=== PATIENT | male | born 1970 | race Caucasian/White ===

== ENCOUNTER 2024-09-30 00:31 | Day surgery (SDC) | payer OTHER, SELFPAY ==
[2024-09-24 15:45] VITALS: BMI 20.7
--- OUTSIDE RECORDS SUMMARY | 2024-09-30 00:34 | XMS_ITS | Referral Summary ---
Author Organization [facility] Address [address] [place] [id number] Care Team Providers Care Qualitative Field Coordinator Name Role Phone Mary Kate Cabrera Primary Care Provider + Allergies Active Allergy Reactions Criticality Noted Date Comments Penicillins Nausea & Vomiting Low 02/20/2024 Medications cetirizine 10 mg capsule Take by mouth Active Active Problems Problem Noted Date Diagnosed Date Positive colorectal cancer screening using Colog uard test 02/15/2024 Social History Tobacco Use Types Packs/Day Years Used Date Smoking Tobacco: Some Days Cigarettes 0.5 21.4 Started: 2003 Smokeless Tobacco: Never Tobacco Cessation:Ready to Q uit: Not Asked; Counseling Given: Not Answered AUDIT-C Answer Date Recorded Q1: How often do you have a drink containing alcohol? Never 03/21/2024 Q2: How many drinks containi ng alcohol do you have on a typical day when you are drinking? Patient does not drink Q3: How often do you have si x or more drinks on one occasion? 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 Additional history: None. TECHNIQUE: Low dose CT scan of the chest was performed without intravenous contrast using helical scanning technique. The exam extends from the lung apices through the lung bases. Automatic exposure control was used as a dose optimization technique. NOTE: This study was performed for the specific purposes of lung cancer screening and is not an alternative to diagnostic chest CT. RADIATION DOSE: CT dose index volume (CTDIvol) = 2.86 mGy COMPARISON: 04/21/2023 FINDINGS: SMOKING RELATED LUNG DISEASE: There is moderate emphysema, stable. There is pleuroparenchymal scarring within the right apex, stable in appearance compared to the prior examination. This extends as a bandlike area of scarring/atelectasis in the right upper lobe, stable from prior examination. LUNG NODULES: Previously documented nodules are as follows: 2 mm nodule lateral right upper lobe, image 110, stable. Stable 3 mm nodule anterior right middle lobe image 177. Stable 4 mm juxta fissural nodule right lower lobe, image 188. Bilobed 7 x 4 mm nodule right middle lobe, image 213, stable. 4 mm nodule posterolateral left upper lobe, image 44, stable. 4 mm nodule, lingula, image 216, stable. Nodular focus of scarring in the right upper lobe on image number 65 measures 7 mm, stable from prior examination. 4 mm nodule in the lingula on image 180 is stable. CORONARY ARTERY CALCIFICATION: Present. OTHER: There is no pneumonic consolidation. There is some subsegmental scarring and atelectasis. Minimal central bronchial wall thickening is noted. No effusion or pneumothorax. The central airways are patent. There is no mediastinal or hilar lymphadenopathy. Postinflammatory calcifications in the left hilum are stable. The esophagus is unremarkable. The heart is normal in size without a pericardial effusion. The thoracic aorta is normal in caliber. Atherosclerotic changes are present. There is no axillary lymphadenopathy. Scattered nodes are similar to the prior study. The chest wall is unremarkable. Visualized upper abdomen reveals mild nonspecific thickening of the left adrenal gland, stable. Hypodense lesion in the medial right hepatic lobe on image 334 measures 7 mm, too small to characterize. There is no acute osseous abnormality. IMPRESSION: Scattered bilateral pulmonary nodules, stable. No new suspicious nodularity. Moderate emphysema, stable. Coronary artery calcifications. Additional findings as above. Lung-RADS category 2S: Benign appearance or behavior. Finding other than a pulmonary nodule which is potentially clinically significant. Recommendation: Low dose Screening CT of chest in 12 months. THIS IS AN ELECTRONICALLY VERIFIED FINAL REPORT 03/07/2024 6:50 AM - Electronically signed by Corin Givens M.D. TW: TW Report ID: [id number] Reading Location: [place] [id number] Procedure Note Corin Givens MD - 03/07/2024 EXAM DESCRIPTION: CT CHEST WO CONTRAST F/U LUNG SCREEN PROTOCOL REASON FOR STUDY: Screening CT of the chest in a current smoker with a37 pack year smoking history. Additional history: None. TECHNIQUE: Low dose CT scan of the chest was performed without intravenous contrast using helical scanning technique. The exam extends from the lung apices through the lung bases. Automatic exposure control was used as adose optimization technique. NOTE: This study was performed for the specific purposes of lung cancer screening and is not an alternative to diagnostic chest CT. RADIATION DOSE: CT dose index volume (CTDIvol) = 2.86 mGy COMPARISON: 04/21/2023 FINDINGS: SMOKING RELATED LUNG DISEASE: There is moderate emphysema,stable. There is pleuroparenchymal scarring within the right apex, stable in appearance compared to the prior examination. This extends as a bandlikearea of scarring/atelectasis in the right upper lobe, stable from prior examination. LUNG NODULES: Previously documented nodules are as follows: 2 mm nodule lateral right upper lobe, image 110, stable. Stable 3 mm nodule anterior right middle lobe image 177. Stable 4 mm juxta fissural nodule right lower lobe, image 188. Bilobed 7 x 4 mm nodule right middle lobe, image 213, stable. 4 mm nodule posterolateral left upper lobe, image 44, stable. 4 mm nodule, lingula, image 216, stable. Nodular focus of scarring in the right upper lobe on image number 65measures 7 mm, stable from prior examination. 4 mm nodule in the lingula on image 180 is stable. CORONARY ARTERY CALCIFICATION: Present. OTHER: There is no pneumonic consolidation. There is some subsegmental scarring and atelectasis. Minimal central bronchial wall thickening isnoted. No effusion or pneumothorax. The central airways are patent. There isno mediastinal or hilar lymphadenopathy. Postinflammatory calcifications inthe left hilum are stable. The esophagus is unremarkable. The heart isnormal in size without a pericardial effusion. The thoracic aorta is normal incaliber. Atherosclerotic changes are present. There is no axillarylymphadenopathy. Scattered nodes are similar to the prior study. The chest wall is unremarkable. Visualized upper abdomen reveals mild nonspecificthickening of the left adrenal gland, stable. Hypodense lesion in the medial righthepatic lobe on image 334 measures 7 mm, too small to characterize. There is noacute osseous abnormality. IMPRESSION: Scattered bilateral pulmonary nodules, stable. No new suspiciousnodularity. Moderate emphysema, stable. Coronary artery calcifications. Additional findings as above. Lung-RADS category 2S: Benign appearance or behavior. Finding other thana pulmonary nodule which is potentially clinically significant. Recommendation: Low dose Screening CT of chest in 12 months. THIS IS AN ELECTRONICALLY VERIFIED FINAL REPORT 03/07/2024 6:50 AM - Electronically signed by Corin Givens M.D. TW: [email or web address] Report ID: [id number] Reading Location: [id number] Mary Kate LOCKE IMG CT PROCEDURES Final Result from Last 3 Months or Most Recently Relevant to Health Maintenance Insurance [facility] Care Teams Qualitative Field Coordinator Relationship Specialty Start Date End Date Mary Kate Cabrera PA PCP - General Physician Actuarial Associate 03/29/23
--- OUTSIDE RECORDS SUMMARY | 2024-09-30 00:34 | XMS_ITS | Data Portability ---
[facility] [address] 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 basal cell carcinoma. Not available 09/21/2021 15:13:16 05/03/2022 05/03/2022 B12 & Iron labs. Not available 05/03/2022 15:54:56 Plan of Treatment Reminders Order Date Submit Date Provider Last Modified By Organization Details Last Modified Time Details Appointments None recorded. Lab CMP, serum or plasma 2023 024 DAMIAN DONOVAN, [address], [facility] [address], [place], [address], 23:07:42 CBC w/ auto diff 2023 024 DAMIAN DONOVAN, [facility] [address], [address], [place], [address], 23:07:43 lipid panel, serum 2023 024 DAMIAN DONOVAN, [facility] [place], [facility] [address], [place], [address], 23:07:42 HbA1c (hemoglob in A1c), blood 2023 024 DAMIAN DONOVAN, [address], [address], [place], [address], 4 06:22:54 noninvasi ve colorecta l cancer DNA + occult blood screening , QL, stool 2023 024 [email or web address] (Cologuard Orders Only), [address], [address], [place], [address], 4 21:29:47 vitamin B12 + folate, serum or blood 2022 023 DAMIAN JEFF, [address], [address], [place], [address], 3 13:09:52 iron + total iron-bind ing capacity (TIBC), serum 2022 023 [facility], [address], [address], [place], [address], 3 13:09:53 urinalysi s, dipstick 2021 022 [email or web address] In-Office Order, Internal Use Only DO Not Attach Compendium DO Not Attach Compendium, Do Not Delete/merge, [id number] 2 11:46:47 culture, urine 2021 022 [facility], [facility] Gran[facility]alitatiannalaura [address], [address], [place], [address], 2 20:08:51 chlamydia trachomat is + neisseria gonorrhoe ae + trichomon as vaginalis DNA panel, JOSE+probe , unspecifi ed specimen 2021 022 DAMIAN AGUILARTY, [address], [address], [place], [address], 2 20:08:50 vitamin B12 + folate, serum or blood 2021 DAMIAN DONOVAN, [address], [address], [place], [address], 20:08:50 iron + total iron-bind ing capacity (TIBC), serum 2021 DAMIAN DONOVAN, [address], [address], [place], [address], 20:08:49 CBC 2021 DAMIAN DONOVAN, [address], [address], [place], [address], 20:08:49 vitamin B12 + folate, serum or blood 2021 DAMIAN DONOVAN, [address], [address], [place], [address], 10:37:57 PT/PTT, plasma 2021 022 DAMIAN DONOVAN, [address], [address], [place], [address], 08:24:05 hepatitis panel (A+B+C), acute, serum 2021 DAMIAN DONOVAN, [address], [address], [place], [address], 15:22:55 CBC w/ auto diff 2021 DAMIAN DONOVAN, [address], [address], [place], [address], 10:37:57 Referral otolaryng ologist referral 2023 024 [facility], [address], [place], [address], 14:32:02 Procedures None recorded. Surgeries None recorded. Imaging LDCT, chest, for lung cancer screening - needed 6 month f/u from march 2023multi ple nodules in lungs [address] ([facility]), [address] [place], [address], 4 07:55:06 Medication Orders sildenafi l 100 mg tablet 2023 024 [facility], [address], [address], 4 16:47:06 nicotine 14 mg/24 hr daily transderm al patch 2023 024 [facility], [address], [address], 4 16:56:02 nicotine 7 mg/24 hr daily transderm al patch 2023 024 [facility]18, [address], [address], 4 16:56:01 cetirizin e 10 mg tablet 2023 024 [facility], [address], [address], 4 16:47:06 Zithromax Z-Rei 250 mg tablet 2022 024 [facility]18, [address], [address], 4 16:42:52 cetirizin e 10 mg tablet 2022 023 [facility]18, [address], [address], 3 11:42:37 Michael Perles 100 mg capsule 2022 024 [facility], [address], [address], 4 16:48:41 Miralax 17 gram/dose oral powder 2021 022 [facility], [address], [address], 2 10:57:54 Cipro 500 mg tablet [address] [facility], [facility] [address], [address], 3 11:41:39 sildenafi l 50 mg tablet 2021 022 [facility], [address], [address], 2 15:23:58 Flonase Allergy Relief 50 mcg/actua tion nasal spray,[facility] 2021 022 [facility]18, [address], [address], 2 15:16:47 Claritin 10 mg tablet [address] [facility] [address] [facility], [address], [address], 3 11:42:33 Patient TargetsNo targets recorded. 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 2 Refer ence inter dustin is for non-a ntico agula ronan patie nts. Sugge sted INR thera peuti c range for Vitam in K antag onist thera py: Stand corina Dose (mode rate inten sity thera peuti c range ): 2.0 - 3.0 Highe r inten sity thera peuti c range 2.5 - 3.5 Not Available [facility] ([facility]) [address] [place], [address], 09/22/2021 08:24:05 09/22/19 22 09/22/2021 PT AND PTT prothrombin time 10.3 sec 9.1-12 .0 Not Available [facility] ([facility]) [address] [place], [address], 09/22/2021 08:24:05 09/22/19 22 09/22/2021 PT AND PTT APTT 29 sec 24-33 This test has not been valid ated for monit oring unfra ction ated hepar in thera py. aPTT- based thera peuti c range s for unfra ction ated hepar in thera py have not been estab jenna thornton al guide lines on Hepar in monit oring , refer to the [facility] Sandra fregoso of Ignacio blake. Not Available [facility] ([facility]) [address] [place], [address], 09/22/2021 08:24:05 09/22/19 22 09/23/2021 CBC WITH DIFFE RENTI AL/PL ATELE T WBC TNP x10e3 /uL Test not perfo rmed. Whole blood speci men parti ally or compl etely clott ed. A commo n cause is insuf ficie nt mixin g upon colle ction . Not Available [facility] ([facility]) [address] [place], [address], 09/23/2021 10:37:57 09/22/19 22 09/23/2021 CBC WITH DIFFE RENTI AL/PL ATELE T RBC TNP Test not perfo rmed Not Available [facility] ([facility]) [address] [place], [address], 09/23/2021 10:37:57 09/22/19 22 09/23/2021 CBC WITH DIFFE RENTI AL/PL ATELE T hemoglobin TNP Test not perfo rmed Not Available [facility] ([facility]) [address] [place], [address], 09/23/2021 10:37:57 09/22/19 22 09/23/2021 CBC WITH DIFFE RENTI AL/PL ATELE T hematocrit TNP Test not perfo rmed Not Available [facility] ([facility]) [address] [place], [address], 09/23/2021 10:37:57 09/22/19 22 09/23/2021 CBC WITH DIFFE RENTI AL/PL ATELE T MCV HEATING AND VENTILATING WORKER Not Available [facility] ([facility]) [address] [place], [address], 09/23/2021 10:37:57 09/22/19 22 09/23/2021 CBC WITH DIFFE RENTI AL/PL ATELE T MCH HEATING AND VENTILATING WORKER Not Available [facility] ([facility]) [address] [place], [address], 09/23/2021 10:37:57 09/22/19 22 09/23/2021 CBC WITH DIFFE RENTI AL/PL ATELE T MCHC HEATING AND VENTILATING WORKER Not Available [facility] ([facility]) [address] [place], [address], 09/23/2021 10:37:57 09/22/19 22 09/23/2021 CBC WITH DIFFE RENTI AL/PL ATELE T RDW HEATING AND VENTILATING WORKER Not Available [facility] ([facility]) [address] [place], [address], 09/23/2021 10:37:57 09/22/19 22 09/23/2021 CBC WITH DIFFE RENTI AL/PL ATELE T platelets TNP Test not perfo rmed Not Available [facility] ([facility]) [address] [place], [address], 09/23/2021 10:37:57 09/22/19 22 09/23/2021 CBC WITH DIFFE RENTI AL/PL ATELE T neutrophils TNP Test not perfo rmed Not Available [facility] ([facility]) [address] [place], [address], 09/23/2021 10:37:57 09/22/19 22 09/23/2021 CBC WITH DIFFE RENTI AL/PL ATELE T lymphs TNP Test not perfo rmed Not Available [facility] ([facility]) [address] [place], [address], 09/23/2021 10:37:57 09/22/19 22 09/23/2021 CBC WITH DIFFE RENTI AL/PL ATELE T monocytes TNP Test not perfo rmed Not Available [facility] ([facility]) [address] [place], [address], 09/23/2021 10:37:57 09/22/19 22 09/23/2021 CBC WITH DIFFE RENTI AL/PL ATELE T eos TNP Test not perfo rmed Not Available [facility] ([facility]) [address] [place], [address], 09/23/2021 10:37:57 09/22/19 22 09/23/2021 CBC WITH DIFFE RENTI AL/PL ATELE T basos HEATING AND VENTILATING WORKER Not Available [facility] ([facility]) [address] [facility], [place], [address], 09/23/2021 10:37:57 09/22/19 22 09/23/2021 CBC WITH DIFFE RENTI AL/PL ATELE T immature cells HEATING AND VENTILATING WORKER Not Available [facility] ([facility]) [address] [place], [address], 09/23/2021 10:37:57 09/22/19 22 09/23/2021 CBC WITH DIFFE RENTI AL/PL ATELE T neutrophils (absolute) HEATING AND VENTILATING WORKER Not Available [facility] ([facility]) [address] [place], [address], 09/23/2021 10:37:57 09/22/19 22 09/23/2021 CBC WITH DIFFE RENTI AL/PL ATELE T lymphs (absolute) TNP Test not perfo rmed Not Available [facility] ([facility]) [address] [place], [address], 09/23/2021 10:37:57 09/22/19 22 09/23/2021 CBC WITH DIFFE RENTI AL/PL ATELE T monocytes(ab solute) HEATING AND VENTILATING WORKER Not Available [facility] ([facility]) [address] [place], [address], 09/23/2021 10:37:57 09/22/19 22 09/23/2021 CBC WITH DIFFE RENTI AL/PL ATELE T eos (absolute) TNP Test not perfo rmed Not Available [facility] ([facility]) [address] [place], [address], 09/23/2021 10:37:57 09/22/19 22 09/23/2021 CBC WITH DIFFE RENTI AL/PL ATELE T baso (absolute) TNP Test not perfo rmed Not Available [facility] ([facility]) [address] [facility], [place], [address], 09/23/2021 10:37:57 09/22/19 22 09/23/2021 CBC WITH DIFFE RENTI AL/PL ATELE T immature granulocytes HEATING AND VENTILATING WORKER Not Available [facility] ([facility]) [address] [facility], [place], [address], 09/23/2021 10:37:57 09/22/19 22 09/23/2021 CBC WITH DIFFE RENTI AL/PL ATELE T immature grans (abs) HEATING AND VENTILATING WORKER Not Available [facility]) [address] [facility], [place], [address], 09/23/2021 10:37:57 09/22/19 22 09/23/2021 CBC WITH DIFFE RENTI AL/PL ATELE T NRBC HEATING AND VENTILATING WORKER Not Available [facility] ([facility]) [address] [place], [address], 09/23/2021 10:37:57 09/22/19 22 09/23/2021 CBC WITH DIFFE RENTI AL/PL ATELE T hematology comments: HEATING AND VENTILATING WORKER Not Available [facility] ([facility]) [address] [place], [address], 09/23/2021 10:37:57 09/22/19 22 09/23/2021 VITAM IN B12 AND FOLAT E vitamin B12 186 pg/mL 232-12 45 below low normal Not Available [facility] ([facility]) [address] [place], [address], 09/23/2021 10:37:57 09/22/19 22 09/23/2021 VITAM IN B12 AND FOLAT E folate (folic acid), serum 14.5 NG/mL >3.0 A serum folat e krystian ntrat ion of less than 3.1 ng/mL is consi dered to repre sent clini wogn defic iency . Not Available [facility] ([facility]) [address] [facility], [place], [address], 09/23/2021 10:37:57 09/22/19 22 09/23/2021 HSV 1 AND 2-SPE C AB, IGG W/RFX hsv 1 IgG, type spec 54.50 index 0.00-0 .90 above high normal Negat irina <0.91 Equiv ocal 0.91 - 1.09 Posit irina >1.09 Note: Negat irina indic ates no antib odies detec ronan to HSV-1 . Equiv ocal may sugge st early infec tion. If clini dinesh appro priat e, retes t at later date. Posit irina indic ates antib odies detec ronan to HSV-1 . Not Available [facility] ([facility]) [address] [facility], [place], [address], 09/23/2021 10:37:58 09/22/19 22 09/23/2021 HSV 1 AND 2-SPE C AB, IGG W/RFX hsv 2 IgG, type spec <0.91 index 0.00-0 .90 Negat irina <0.91 Equiv ocal 0.91 - 1.09 Posit irina >1.09 Note: Negat irina indic ates no HSV-2 antib odies detec ronan. Posit irina indic ates HSV-2 antib odies detec ronan. Equiv ocal and low posit irina HSV-2 scree ns (Inde x 0.91- 5.00) may be false posit irina and are refle xed to suppl emmesfin al testi ng in accor dance with CDC guide lines . Not Available [facility] ([facility]) [address] [facility], [place], [address], 09/23/2021 10:37:58 09/22/19 22 09/23/2021 SPECI MEN STATU S REPOR T specimen status report TNP Test not perfo rmed. Whole blood speci men parti ally or compl etely clott ed. A commo n cause is insuf ficie nt mixin g upon colle ction . TEST: [id number] CBC With Diffe renti al/Pl atele t Not Available [facility] ([facility]) [address] [facility], [place], [address], 09/23/2021 10:37:59 12/11/19 22 12/11/2021 CBC, PLATE LET, NO DIFFE RENTI AL WBC 3.2 x10e3 /uL 3.4-10 .8 below low normal Not Available [facility] ([facility]) [address] [facility], [place], [address], 12/13/2021 20:08:48 12/11/19 22 12/11/2021 CBC, PLATE LET, NO DIFFE RENTI AL RBC 4.23 x10e6 /uL 4.14-5 .80 Not Available [facility] ([facility]) [address] [facility], [place], [address], 12/13/2021 20:08:48 12/11/19 22 12/11/2021 CBC, PLATE LET, NO DIFFE RENTI AL hemoglobin 14.0 g/dL 13.0-1 7.7 Not Available [facility] ([facility]) [address] [place], [address], 12/13/2021 20:08:48 12/11/19 22 12/11/2021 CBC, PLATE LET, NO DIFFE RENTI AL hematocrit 41.8 % 37.5-5 1.0 Not Available [facility] ([facility]) [address] [place], [address], 12/13/2021 20:08:48 12/11/19 22 12/11/2021 CBC, PLATE LET, NO DIFFE RENTI AL MCV 99 fL 79-97 above high normal Not Available [facility] ([facility]) [address] [place], [address], 12/13/2021 20:08:48 12/11/19 22 12/11/2021 CBC, PLATE LET, NO DIFFE RENTI AL MCH 33.1 pg 26.6-3 3.0 above high normal Not Available [facility] ([facility]) [address] [facility], [place], [address], 12/13/2021 20:08:48 12/11/19 22 12/11/2021 CBC, PLATE LET, NO DIFFE RENTI AL MCHC 33.5 g/dL 31.5-3 5.7 Not Available [facility] ([facility]) [address] [facility], [place], [address], 12/13/2021 20:08:48 12/11/19 22 12/11/2021 CBC, PLATE LET, NO DIFFE RENTI AL RDW 13.3 % 11.6-1 5.4 Not Available [facility] ([facility]) [address] [facility], [place], [address], 12/13/2021 20:08:48 12/11/19 22 12/11/2021 CBC, PLATE LET, NO DIFFE RENTI AL platelets 98 x10e3 /uL 150-45 0 alert low Not Available [facility] ([facility]) [address] [facility], [place], [address], 12/13/2021 20:08:48 12/11/19 22 12/11/2021 CBC, PLATE LET, NO DIFFE RENTI AL hematology comments: Note: Verif ied by nani pelayo natbarbara n. Not Available [facility] ([facility]) [address] [facility], [place], [address], 12/13/2021 20:08:48 12/11/19 22 12/11/2021 CBC, PLATE LET, NO DIFFE RENTI AL NRBC HEATING AND VENTILATING WORKER Not Available [facility] ([facility]) [address] [facility], [place], [address], 12/13/2021 20:08:48 12/11/19 22 12/11/2021 IRON AND TIBC iron bind.cap.(TI BC) 217 ug/dL 250-45 0 below low normal Not Available [facility] ([facility]) [address] [place], [address], 12/13/2021 20:08:49 12/11/19 22 12/11/2021 IRON AND TIBC UIBC 193 ug/dL 111-34 3 Not Available [facility] ([facility]) [address] [place], [address], 12/13/2021 20:08:49 12/11/19 22 12/11/2021 IRON AND TIBC iron 24 ug/dL 38-169 below low normal Not Available [facility] ([facility]) [address] [place], [address], 12/13/2021 20:08:49 12/11/19 22 12/11/2021 IRON AND TIBC iron saturation 11 % 15-55 below low normal Not Available [facility] ([facility]) [address] [place], [address], 12/13/2021 20:08:49 12/11/19 22 12/13/2021 CT, NG, TRICH VAG BY JOSE chlamydia by JOSE Negati ve negati ve Not Available [facility] ([facility]) [address] [place], [address], 12/13/2021 20:08:50 12/11/19 22 12/13/2021 CT, NG, TRICH VAG BY JOSE gonococcus by JOSE Negati ve negati ve Not Available [facility] ([facility]) [address] [place], [address], 12/13/2021 20:08:50 12/11/19 22 12/13/2021 CT, NG, TRICH VAG BY JOSE trich vag by JOSE Negati ve negati ve Not Available [facility] ([facility]) [address] [facility], [address], 12/13/2021 20:08:50 12/11/19 22 12/11/2021 VITAM IN B12 AND FOLAT E vitamin B12 852 pg/mL 232-12 45 Not Available [facility] ([facility]) [address] [facility], [place], [address], 12/13/2021 20:08:50 12/11/19 22 12/11/2021 VITAM IN B12 AND FOLAT E folate (folic acid), serum 14.3 NG/mL >3.0 A serum folat e krystian ntrat ion of less than 3.1 ng/mL is consi dered to repre sent clini wong defic iency . Not Available [facility] ([facility]) [address] [facility], [place], [address], 12/13/2021 20:08:50 12/11/19 22 12/12/2021 URINE CULTU RE, ROUTI NE urine culture, routine Final report Not Available [facility] ([facility]) [address] [facility], [place], [address], 12/13/2021 20:08:51 12/11/19 22 12/12/2021 URINE CULTU RE, ROUTI NE result 1 Commen t Cultu re shows less than 10,00 0 colon y formi ng units of bacte eligio per clark liter of urine . This colon y count is not gener ally consi dered to be clini dinesh signi fican t. Not Available [facility] ([facility]) [address] [facility], [place], [address], 12/13/2021 20:08:51 12/11/19 22 12/10/2021 urina lysis , dipst ick Leukocytes Negati ve Not Available In-Office Order Internal Use Only DO Not Attach Compendium DO Not Attach Compendium, Do Not Delete/merge, [id number] 12/10/2021 10:58:32 12/11/19 22 12/10/2021 urina lysis , dipst ick Nitrite negati ve Not Available In-Office Order Internal Use Only DO Not Attach Compendium DO Not Attach Compendium, Do Not Delete/merge, 12/10/2021 10:58:32 12/11/19 22 12/10/2021 urina lysis , dipst ick Urobilinogen 1 Not Available In-Of fice Order Internal Use Only DO Not Attach Compendium DO Not Attach Compendium, Do Not Delete/merge, 12/10/2021 10:58:32 12/11/19 22 12/10/2021 urina lysis , dipst ick Protein 30 Not Available In-Office Order Internal Use Only DO Not Attach Compendium DO Not Attach Compendium, Do Not Delete/merge, 12/10/2021 10:58:32 12/11/19 22 12/10/2021 urina lysis , dipst ick pH 6.0 Not Available In-Office Order Internal Use Only DO Not Attach Compendium DO Not Attach Compendium, Do Not Delete/merge, 12/10/2021 10:58:32 12/11/19 22 12/10/2021 urina lysis , dipst ick Blood Negati ve Not Available In-Office Order Internal Use Only DO Not Attach Compendium DO Not Attach Compendium, Do Not Delete/merge, 12/10/2021 10:58:32 12/11/19 22 12/10/2021 urina lysis , dipst ick Specific Baylis 1.025 Not Available In-Off ice Order Internal Use Only DO Not Attach Compendium DO Not Attach Compendium, Do Not Delete/merge, 12/10/2021 10:58:32 12/11/19 22 12/10/2021 urina lysis , dipst ick Ketone Large (80) Not Available In-Office Order Internal Use Only DO Not Attach Compendium DO Not Attach Compendium, Do Not Delete/merge, 12/10/2021 10:58:32 12/11/19 22 12/10/2021 urina lysis , dipst ick Bilirubin Modera te Not Available In-Office Order Internal Use Only DO Not Attach Compendium DO Not Attach Compendium, Do Not Delete/merge, [id number] 12/10/2021 10:58:32 12/11/19 22 12/10/2021 urina lysis , dipst ick Glucose Negati ve Not Available In-Office Order Internal Use Only DO Not Attach Compendium DO Not Attach Compendium, Do Not Delete/merge, [id number] 12/10/2021 10:58:32 12/11/19 22 12/10/2021 urina lysis , dipst ick Color Dark Yellow Not Available In-Office Order Internal Use Only DO Not Attach Compendium DO Not Attach Compendium, Do Not Delete/merge, [id number] 12/10/2021 10:58:32 05/03/19 23 05/05/2022 VITAM IN B12 AND FOLAT E vitamin B12 442 pg/mL 232-12 45 Not Available [facility] ([facility]) [address] [place], [address], 05/05/2022 13:09:52 05/03/19 23 05/05/2022 VITAM IN B12 AND FOLAT E folate (folic acid), serum 11.2 NG/mL >3.0 A serum folat e krystian ntrat ion of less than 3.1 ng/mL is consi dered to repre sent clini wong defic iency . Not Available [facility] ([facility]) [address] [place], [address], 05/05/2022 13:09:52 05/03/19 23 05/05/2022 IRON AND TIBC iron bind.cap.(TI BC) 206 ug/dL 250-45 0 below low normal Not Available [facility] ([facility]) [address] [facility], [place], [address], 05/05/2022 13:09:53 05/03/19 23 05/05/2022 IRON AND TIBC UIBC 137 ug/dL 111-34 3 Not Available [facility] ([facility]) [address] [place], [address], 05/05/2022 13:09:53 05/03/19 23 05/05/2022 IRON AND TIBC iron 69 ug/dL 38-169 Not Available [facility] ([facility]) [address] [facility], [place], [address], 05/05/2022 13:09:53 05/03/19 23 05/05/2022 IRON AND TIBC iron saturation 33 % 15-55 Not Available [facility] ([facility]) [address] [facility], [place], [address], 05/05/2022 13:09:53 01/09/20 24 01/10/2024 LIPID PANEL cholesterol, total 129 mg/dL 100-19 9 Not Available [facility] [address] [place] [address], [address], 01/10/2024 23:07:42 01/09/20 24 01/10/2024 LIPID PANEL triglyceride s 83 mg/dL 0-149 Not Available [facility] [address] [place] [address], [address], 01/10/2024 23:07:42 01/09/20 24 01/10/2024 LIPID PANEL HDL cholesterol 39 mg/dL 40-999 below low normal Not Available [facility] [address] [place] [address], [address], 01/10/2024 23:07:42 01/09/20 24 01/10/2024 LIPID PANEL VLDL cholesterol wong 17 mg/dL 5-40 Not Available [facility] [address] [place] [address], [address], 01/10/2024 23:07:42 01/09/20 24 01/10/2024 LIPID PANEL LDL chol calc ([facility]) 84 mg/dL 0-99 Not Available [facility] [address] [place] [address], [address], 01/10/2024 23:07:42 01/09/20 24 01/10/2024 COMP. METAB OLIC PANEL (14) glucose 94 mg/dL 70-99 Not Available [facility] [address] [place] [address], [address], 01/10/2024 23:07:42 01/09/20 24 01/10/2024 COMP. METAB OLIC PANEL (14) BUN 15 mg/dL 6-24 Not Available [facility] [address] [place] [address], [address], 01/10/2024 23:07:42 01/09/20 24 01/10/2024 COMP. METAB OLIC PANEL (14) creatinine 0.80 mg/dL 0.76-1 .27 Not Available [facility] [address] [place] [address], [address], 01/10/2024 23:07:42 01/09/20 24 01/10/2024 COMP. METAB OLIC PANEL (14) eGFR 105 >=60 Units for eGFR value s are mL/mi n/1.7 3 The eGFR Calcu latio n has not been valid ated for patie nts under the age of 18. If test resul ts are displ ayed for a patie nt under the age of 18, disre eden that value . Not Available [facility] [address] [place] [address], [address], 01/10/2024 23:07:42 01/09/20 24 01/10/2024 COMP. METAB OLIC PANEL (14) BUN/creatini ne ratio 19 9-20 Not Available [facility] [address] [place], [address], 01/10/2024 23:07:42 01/09/20 24 01/10/2024 COMP. METAB OLIC PANEL (14) sodium 142 mmol/ L 134-14 4 Not Available [facility] [address] [place], [address], 01/10/2024 23:07:42 01/09/20 24 01/10/2024 COMP. METAB OLIC PANEL (14) potassium 4.1 mmol/ L 3.5-5. 2 Not Available [facility] [address] [place], [address], 01/10/2024 23:07:42 01/09/20 24 01/10/2024 COMP. METAB OLIC PANEL (14) chloride 106 mmol/ L 96-106 Not Available [facility] [address] [place], [address], 01/10/2024 23:07:42 01/09/20 24 01/10/2024 COMP. METAB OLIC PANEL (14) carbon dioxide, total 27 mmol/ L 20-29 Not Available [facility] [address] [place] [address], [address], 01/10/2024 23:07:42 01/09/20 24 01/10/2024 COMP. METAB OLIC PANEL (14) calcium 9.3 mg/dL 8.7-10 .2 Not Available [facility] [address] [place], [address], 01/10/2024 23:07:42 01/09/20 24 01/10/2024 COMP. METAB OLIC PANEL (14) protein, total 6.4 g/dL 6.0-8. 5 Not Available [facility] [address] [place], [address], 01/10/2024 23:07:42 01/09/20 24 01/10/2024 COMP. METAB OLIC PANEL (14) albumin 4.3 g/dL 3.8-4. 9 Not Available [facility] [address] [place], [address], 01/10/2024 23:07:42 01/09/20 24 01/10/2024 COMP. METAB OLIC PANEL (14) globulin, total 2.1 g/dL 1.5-4. 5 Not Available [facility] [address] [place], [address], 01/10/2024 23:07:42 01/09/20 24 01/10/2024 COMP. METAB OLIC PANEL (14) A/G ratio 2.0 1.2-2. 2 Not Available [facility] [address] [place], [address], 01/10/2024 23:07:42 01/09/20 24 01/10/2024 COMP. METAB OLIC PANEL (14) bilirubin, total 0.4 mg/dL 0.0-1. 2 Not Available [facility] [address] [place], [address], 01/10/2024 23:07:42 01/09/20 24 01/10/2024 COMP. METAB OLIC PANEL (14) alkaline phosphatase 97 IU/L 44-121 Not Available [facility] Department [address] [place] [address], [address], 01/10/2024 23:07:42 01/09/20 24 01/10/2024 COMP. METAB OLIC PANEL (14) AST (SGOT) 11 IU/L 0-40 Not Available [facility] [address] [place] [address], [address], 01/10/2024 23:07:42 01/09/20 24 01/10/2024 COMP. METAB OLIC PANEL (14) ALT (SGPT) 5 IU/L 0-44 Not Available [facility] [address] [place] [address], [address], 01/10/2024 23:07:42 01/09/20 24 01/10/2024 CBC WITH DIFFE RENTI AL/PL ATELE T WBC 2.1 x10e3 /uL 3.4-10 .8 below low normal Not Available [facility] [address] [place] [address], [address], 01/10/2024 23:07:43 01/09/20 24 01/10/2024 CBC WITH DIFFE RENTI AL/PL ATELE T RBC 3.48 x10e6 /uL 4.14-5 .80 below low normal Not Available [facility] [address] [place], [address], 01/10/2024 23:07:43 01/09/20 24 01/10/2024 CBC WITH DIFFE RENTI AL/PL ATELE T hemoglobin 12.3 g/dL 13.0-1 7.7 below low normal Not Available [facility] [address] [place], [address], 01/10/2024 23:07:43 01/09/20 24 01/10/2024 CBC WITH DIFFE RENTI AL/PL ATELE T hematocrit 39.1 % 37.5-5 1.0 Not Available [facility] [address] [place], [address], 01/10/2024 23:07:43 01/09/20 24 01/10/2024 CBC WITH DIFFE RENTI AL/PL ATELE T MCV 112 fL 79-97 above high normal Not Available [facility] [address] [place], [address], 01/10/2024 23:07:43 01/09/20 24 01/10/2024 CBC WITH DIFFE RENTI AL/PL ATELE T MCH 35.3 pg 26.6-3 3.0 above high normal Not Available [facility] [address] [place], [address], 01/10/2024 23:07:43 01/09/20 24 01/10/2024 CBC WITH DIFFE RENTI AL/PL ATELE T MCHC 31.5 g/dL 31.5-3 5.7 Not Available [facility] [address] [place], [address], 01/10/2024 23:07:43 01/09/20 24 01/10/2024 CBC WITH DIFFE RENTI AL/PL ATELE T RDW 14.6 % 11.5-1 4.5 above high normal Not Available [facility] [address] [place], [address], 01/10/2024 23:07:43 01/09/20 24 01/10/2024 CBC WITH DIFFE RENTI AL/PL ATELE T platelets 67 x10e3 /uL 150-45 0 below low normal Not Available [facility] [address] [place], [address], 01/10/2024 23:07:43 01/09/20 24 01/10/2024 CBC WITH DIFFE RENTI AL/PL ATELE T neutrophils - Test not perfo rmed Not Available [facility] [address] [place], [address], 01/10/2024 23:07:43 01/09/20 24 01/10/2024 CBC WITH DIFFE RENTI AL/PL ATELE T lymphs - Test not perfo rmed Not Available [facility] [address] [place], [address], 01/10/2024 23:07:43 01/09/20 24 01/10/2024 CBC WITH DIFFE RENTI AL/PL ATELE T monocytes - Test not perfo rmed Not Available [facility] [address] [place], [address], 01/10/2024 23:07:43 01/09/20 24 01/10/2024 CBC WITH DIFFE RENTI AL/PL ATELE T eos - Test not perfo rmed Not Available [facility] [address] [place], [address], 01/10/2024 23:07:43 01/09/20 24 01/10/2024 CBC WITH DIFFE RENTI AL/PL ATELE T lymphs (absolute) - Test not perfo rmed Not Available [facility] [address] [place], [address], 01/10/2024 23:07:43 01/09/20 24 01/10/2024 CBC WITH DIFFE RENTI AL/PL ATELE T eos (absolute) - Test not perfo rmed Not Available [facility] [address] [place], [address], 01/10/2024 23:07:43 01/09/20 24 01/10/2024 CBC WITH DIFFE RENTI AL/PL ATELE T baso (absolute) - Test not perfo rmed Not Available [facility] [address] [place], [address], 01/10/2024 23:07:43 01/09/20 24 01/11/2024 HEMOG LOBIN A1C hemoglobin A1C 5.7 % 4.8-5. 6 above high normal Predi abete s: 5.7 - 6.4 Diabe laura: >6.4 Glyce kamryn contr ol for adult s with diabe laura: <7.0 Not Available [facility] ([facility]) [address] [facility], [place], [address], 01/11/2024 06:22:54 02/05/2002/05/2024 COLOG UARD cologuard result reportable POSITI VE negati ve abnormal POSIT IRINA TEST RESUL T. A posit irina Colog uard resul t shoul d be follo wed with a colon oscop y or visua l exami natio n of the colon . The kalee l value (refe rence range ) for this assay is negat irina. TEST DESCR IPTIO N: [place] site algor ithmi c joslyn sis of stool DNA-b iojp kerjordin with hemog lobin immun oassa y. Quant itati ve value s of indiv idual bioma rkers are not repor table and are not assoc iated with indiv idual bioma rker resul t refer ence range s. Colog uard is inten ded for color ectal cance r scree carole of adult s of eithe r sex, 45 years or older , who are at [facility] for color ectal cance r (CRC) . Colog uard has been appro jimmy for use by the U.[place]. FDA. The perfo rmanc e of Colog uard was estab lishe d in a cross secti onal study of [facility] adult s aged 50-84 . Colog uard perfo rmanc e in patie nts ages 45 to 49 years was estim ated by sub-g roup joslyn sis of near- age group s. Colon oscop ies perfo rmed for a posit irina resul t may find as the most clini dinesh signi fican t lesio n: color ectal cance r [4.0% ], advan elvis adeno ma (incl uding sessi le silverio ronan polyp s great er than or equal to 1cm diame ter) [20%] or non- advan elvis adeno ma [31%] ; or no color ectal neopl emily [45%] . These estim ates are deriv ed from a prosp ectiv e cross -sect ional scree carole study of 0 indiv idual s at [facility] risk for color ectal cance r who were scree idania with both Colog uard and colon oscop y. (Ganesh Foreman. et al, N Engl J Med 2014; 370(1 4):12 86-12 97.) Colog uard may produ ce a false negat irina or false posit irina resul t (no color ectal cance r or preca ncero us polyp prese nt at colon oscop y follo w up). A negat irina Colog uard test resul t does not guara ntee the absen ce of CRC or advan elvis adeno ma (pre- cance r). The curre nt Colog uard scree carole inter dustin is every 3 years . (Amer ican Cance r Socie ty and U.S. Multi -Soci ety Task Force ). Colog uard perfo rmanc e data in a 0 patie nt pivot al study using colon oscop y as the refer ence metho d can be acces sed at the follo wing locat ion: www.e xactl abs.c om/re sults . Addit ional descr iptio n of the Colog uard test proce ss, warni ngs and preca ution s can be found at www.сергей arriaga.сергей om. Not Available [facility] (Cologuard Orders Only) [address], [place], [address], 02/08/2024 21:29:46 03/07/20 24 03/07/2024 CT, chest , w/o contr ast No observ ation record ed. [facility] ([facility]) [address] [place], [address], 03/07/2024 08:35:35 Result Notes None recorded. Problems Name Problem SNOMED Code Status Onset Date Resolution Date Notes Provider Name and Address Organization Details Recorded Time Basal cell carcinoma of skin 633936268 Active 2021 CHUCKY DE LEON Attn: Accountin g,[address] [facility], [place], [address], [place] - [facility] 2 13:39:24 Erectile dysfunction 283357343 Active 2021 CHUCKY DE LEON Attn: Accountin g,[address] [facility], [place], [address], [place] [facility] 2 13:39:25 Leukopenia 07611213 Active 2021 CHUCKY DE LEON Attn: Accountin g,[address] [facility], [place], [address], [place] [facility] 2 09:30:19 Iron deficiency anemia 89001050 Active 2021 CHUCKY DE LEON Attn: Accountin g,[address] [facility], [place], [address], [place] [facility] 2 09:30:19 Thrombocytopen ic disorder 119556880 Active 2021 CHUCKY DE LEON Attn: Accountin g,[address] [facility], [place], [address], [place] [facility] 2 09:30:22 Chronic sinusitis 68491356 Active 2023 CHUCKY DE LEON Attn: Madhu vergara,[address] [facility], [place], [address], [place] [facility] 4 17:02:47 Smoker 12913487 Active 2023 CHUCKY DE LEON Attn: Madhu vergara,[address] [facility], [place], [address], [place] [facility] 4 17:02:48 Multiple nodules of lung 439938035 Active 2023 CHUCKY DE LEON Attn: Madhu vergara,[address] [facility], [place], [address], [facility] - [facility] 4 17:02:53 Problem Notes None recorded. Medical Equipment None Reported. Allergies Allergen ID Allergen Name Allergen Category Reaction Reaction Severity Criticality Documentation Date Start Date Code Code System Note Provider Name and Address Organization Details Recorded Time 998888 Product containin g penicilli n (product) medicatio n nausea Not available Not available 06/25/2021 39046 8001 SNOMED CHUCKY DE LEON Attn: Madhu vergara,[address] [facility], [place], [address], [facility] - [facility] 3 11:41:05 Medications Name Sig Start Date Stop Date Status Note LastModified by Organization Details LastModified Time Miralax 17 gram/dose oral powder Take 17 g every day by oral route as needed. 2021 active Not Available Not Available Not Avai lable nicotine 14 mg/24 hr daily transdermal patch Apply 1 patch every day by transderm al route for 45 days. active Not Available Not Available No t Available sildenafil 50 mg tablet TAKE 1 TABLET BY MOUTH ONCE DAILY NEEDED FOR 9 DAYS active Not Available Not Available No t Available cetirizine 10 mg tablet TAKE 1 TABLET BY MOUTH ONCE DAILY active Not Available Not Available No t Available azithromyci n 250 mg tablet TAKE 2 TABLETS BY MOUTH ON DAY 1, AND THEN TAKE 1 TABLET BY MOUTH ONCE A DAY ON DAY 2 THROUGH DAY 5 01/08 completed Not Available Not Available Not Available ofloxacin 0.3 % eye drops INSTILL 3 DROPS INTO AFFECTED EYE(S) THREE TIMES DAILY FOR 7 DAYS active Not Available Not Available No t Available hydrocodone 5 mg-acetamin ophen 325 mg tablet TAKE 1 TABLET BY MOUTH EVERY 6 HOURS NEEDED FOR PAIN 01/08 completed Not Available Not Available Not Available sildenafil 100 mg tablet TAKE 1 TABLET BY MOUTH ONCE DAILY FOR 9 DAYS active Not Available Not Available No t Available ketorolac 0.5 % eye drops INSTILL 1 DROP INTO AFFECTED EYE(S) 4 TIMES DAILY NEEDED FOR 4 DAYS active Not Available Not Available No t Available amoxicillin 875 mg tablet TAKE 1 TABLET BY MOUTH TWICE DAILY UNTIL ALL TAKEN 02/27 completed Not Available Not Available Not Available benzonatate 100 mg capsule TAKE 1 CAPSULE BY MOUTH THREE TIMES DAILY NEEDED FOR 5 DAYS 01/08 completed Not Available Not Available Not Available Cipro 500 mg tablet Take 1 tablet every 12 hours by oral route for 7 days. 02/27 completed Not Available Not Available Not Available cyanocobala min (vit B-12) 1,[address] 1 tablet every day by sublingua l route in the morning for 30 days. 2021 active Not Available Not Available Not Avai lable ondansetron 4 mg disintegrat ing tablet DISSOLVE 2 TABLETS IN MOUTH TWICE DAILY FOR 1 DAY active Not Available Not Available No t Available fluticasone propionate 50 mcg/actuati on nasal spray,suspe nsion [place] 1 spray every day by intranasa l route. active Not Available Not Available No t Available loratadine 10 mg tablet TAKE 1 TABLET BY MOUTH ONCE DAILY FOR 90 DAYS 02/27 completed Not Available Not Available Not Available nicotine 7 mg/24 hr daily transdermal patch Apply 1 patch every day by transderm al route for 30 days. 2023 active Not Available Not Available Not Avai lable peg 3350-electr olytes 236 gram-22.74 gram-6.74 gram-5.86 gram solution TAKE 4000ML BY MOUTH ONCE FOR 1 DOSE active Not Available Not Available No t Available FeroSul 325 mg (65 mg iron) tablet TAKE 2 TABLETS BY MOUTH ONCE DAILY active Not Available Not Available No t Available Vitals Date Recorded Body height Body mass index (BMI) Body weight Heart rate Oxygen saturation Oxygen saturation in Arterial blood by Pulse oximetry Systolic blood pressure Diastolic blood pressure Provider Name and Address Organization Details Last Updated DateTime 2 175.26 cm 20.2 kg/m2 38315.3 6 g 82 /min 96 % 96 % 110 mm[Hg] 72 mm[Hg] Regina Enriquez MA [facility] 2 15:09:21 Date Recorded Body height Body mass index (BMI) Body weight Heart rate Oxygen saturation Oxygen saturation in Arterial blood by Pulse oximetry Systolic blood pressure Diastolic blood pressure Provider Name and Address Organization Details Last Updated DateTime 2 175.26 cm 19.1 kg/m2 76535.8 2 g 73 /min 97 % 97 % 112 mm[Hg] 70 mm[Hg] Regina Enriquez MA [facility] 2 10:44:09 Date Recorded Body height Body mass index (BMI) Body weight Heart rate Oxygen saturation Oxygen saturation in Arterial blood by Pulse oximetry Systolic blood pressure Diastolic blood pressure Provider Name and Address Organization Details Last Updated DateTime 4 175.26 cm 19.5 kg/m2 85561.5 9 g 79 /min 97 % 97 % 122 mm[Hg] 81 mm[Hg] Regina Enriquez MA [facility] 4 16:33:56 Date Recorded Body height Body mass index (BMI) Body weight Heart rate Oxygen saturation Oxygen saturation in Arterial blood by Pulse oximetry Systolic blood pressure Diastolic blood pressure Provider Name and Address Organization Details Last Updated DateTime 3 175.26 cm 20.4 kg/m2 12701.7 5 g 63 /min 96 % 96 % 110 mm[Hg] 60 mm[Hg] Regina Enriquez MA [facility] 3 11:21:28 Social History Question Answer Notes LastModified by Organizat ion Details LastModified Time Tobacco Smoking Status Current Every Day Smoker has cut down Regina Enriquez MA null, [facility] 02/27/2023 11:19:57 Do You Have An Advance Directive? No Information not available 06/25/2021 In The 14 Days Before Symptom Onset, Have You Had Close Contact With A Laboratory-confir med COVID-19 While That Case Was Ill? No Information not available 06/25/2021 In The 14 Days Before Symptom Onset, Have You Had Close Contact With A Person Who Is Under Investigation For COVID-19 While That Person Was Ill? No Information not available 06/25/2021 Have You Been To An Area Known To Be High Risk For COVID-19? No Information not available 06/25/2021 What Was The Date Of Your Most Recent Tobacco Screening? 01/09/2024 Information not available 01/09/2024 What Is Your Current Pack Years? [email or web address] jeffries Information not available 01/09/2024 Do You Have Smoke And Carbon Monoxide Detectors In Your Home? Yes Information not available 06/25/2021 At What Age Did You Start Smoking Tobacco? 21 Information not available 06/25/2021 Are You Passively Exposed To Smoke? Yes Information no t available 06/25/2021 How Much Tobacco Do You Smoke? 0.25 PPD 5 A Day Information not available 01/09/2024 Has Tobacco Cessation Counseling Been Provided? Yes Information not available 06/25/2021 On What Date Was Tobacco Cessation Counseling Provided? 01/09/2024 Information not available 01/09/2024 How Many Years Have You Smoked Tobacco? 30 Information not available 01/09/2024 Sex: Male Functional Status Question Answer Note LastModified by Organization D etails LastModified Time What is your level of alcohol consumption? None Information not available 06/25/2021 Mental Status None recorded. Family History Relationship Description Onset Age of this Age Resolved Age Notes LastModified by Organization Details LastModified Time Father No current problems or disability Not available 06/25 11:56:31 Mother No current problems or disability Not available 06/25 11:56:31 Medical History Condition Response Coronary Artery Disease N Other N Atrial Fibrillation N High Blood Pressure N Kidney or Bladder Problems N Thyroid Problems N GI Problems N Depression N COPD N Blood Clots N Skin Problems N Anemia N Heart Attack (SD) N Anxiety Disorder N Diabetes N Muscle, Joint, or Bone Problems N Seizures/Epilepsy N Acid Reflux (GERD) N Cancer N Stroke N Asthma N Allergies N High Cholesterol N Hepatitis N Liver Disease N Headaches N Heart Failure N Osteoporosis N Past Encounters Encounter ID Performer Location Encounter Start Date Encounter Closed Date Diagnosis/Indication Diagnosis SNOMED-CT Code Diagnosis ICD10 Code Diagnosis Note [id number] CHUCKY DE LEON [facility] [address] [place] [address] 06/25/2021 11:45:05 06/28/2021 12:42:58 Seasonal allergic rhinitis 352477264 J30.2 Patient moved back from [facility] 6 months ago and struggling with allergies. will start zyrtec and flonase. Smoker 37424106 F17.200 Patient smoking 5 cigs per day x 20 years.want s to quit but has had no luck with patches or gum. Screening for malignant neoplasm of colon 203090134 Z12.11 due for colonoscop y. has never had one. Erectile dysfunction 860 336022 F52.21 Patient c/o of months of trouble initiating erection and maintainin g. no trouble with climax. Very happy with partner. - quit smoking- checking labs- BP normal Basal cell carcinoma of skin 561020519 C44.91 patient diagnosed with BCC located on nose and left cheek in [place] in 2019 and 2020, s/p resection. Need records. will send to derm. Poor oral hygiene 217504 009 R46.89 patient has dental appointmen t coming up. multiple missing teeth. Adult heal th examination 536242775 Z00.00 HIV screening 448585910 Z11.4 Cholesterol screening 27 5160529 Z13.429 [id number] CHUCKY DE LEON [facility] [address] [place] [address] 07/16/2021 12:18:53 07/20/2021 06:45:38 [id number] CHUCKY DE LEON [facility] [address] [place] [address] 09/21/2021 14:55:11 09/24/2021 11:14:36 Seasonal allergic rhinitis 819916123 J30.2 Patient moved back from [place] 8 months ago and struggling with allergies. will start zyrtec and flonase. Smoker 02550506 F17.200 Patient smoking 5 cigs per day x 20 years.want s to quit but has had no luck with patches or gum. Macrocytic anemia 723461 05 D53.9 recehck Leukopenia 08404635 D72. 819 recheck. denies fatigue, weight loss, fever, joint pains. Erectile dysfunction 860 141509 F52.21 Patient c/o of months of trouble initiating erection and maintainin g. no trouble with climax. Very happy with partner. - quit smoking- checking labs- BP normal Thrombocyt openic disorder 501249706 D69.6 recheck. no bruising on exam. [id number] CHUCKY DE LEON [facility] [address] [place] [address] 12/10/2021 10:17:49 12/14/2021 10:51:07 Constipation 83664783 K59.00 - NO BM since Monday- LLQ pain on exam, may be constipati on- schedule colonoscop y Left lower quadrant pain 049091539 R10.32 LLQ pain w/o heamturia, penile drainage diarrhea. tender over pelvic area, temp elevated to 99 but otherwise afebrile. CVA negative. no rebound tenderness . UA + protein and ketones which could indicate infection. culture sent. treating with abx due to overall clinical picture. hemodynami dinesh stable. patient denies allergies to fluoroquin olones. - ER if pain worsens Macrocytic anemia 963305 05 D53.9 recehck [id number] CHUCKY DE LEON [facility] [address] [place] [address] 05/03/2022 15:49:01 05/04/2022 13:30:49 Iron deficiency anemia 08490536 D50.9 [id number] CHUCKY DE LEON [facility] [address] [place] [address] 02/27/2023 11:03:34 02/28/2023 09:01:25 Smoker 94484448 F17.200 Patient smoking 5 cigs per day x 20 years.want s to quit but has had no luck with patches or gum. Acute sinusitis 25299371 J01.90 > 2 weeks with cough, facial pain, congestion - hydrate and rest- ibuprofen or tylenol for body aches- z rei for lungs- tessalon perles to control cough- f/u if not improving or worsening. - ER if trouble breathing, worsening chest pain, 103 fever without improvemen t with NSAID/tyle nol. [id number] Fer See MD [facility] [address] [place] [address] 01/09/2024 16:26:46 01/09/2024 17:20:14 Adult health examination 376480445 Z00.00 - stop smoking- repeat LDCT- labs- ENT REFERRAL- declines flu and covid- states he had tdap in [place] 5 years ago Screening for malignant neoplasm of colon 849002881 Z12.11 due for colonoscop y. has never had one. Smoker 03847337 F17.200 started age 89ppd Chronic sinusitis 588135 00 J32.9 using claritin and flonase otc Erectile dysfunction 860 023959 F52.21 Patient c/o of months of trouble initiating erection and maintainin g. no trouble with climax. Very happy with partner. - quit smoking- checking labs- BP normal Multiple n odules of lung 764317149 R91.8 shown on LDCT 03/2023 Health Concerns Section Related Observation LastModified by Organization Detai ls LastModified Time None Recorded Concern Status LastModified by Organization Details LastModified Time None Recorded Advance Directives Directive N: Payers Encounter Date Sequence Insurance Name Policy Number Policy Villareal Covered Member ID Villareal Member ID Guarantor Name 09/21/2021 1 [facility] ON OR AFTER 10/29/20 (MEDICAID REPLACEMENT - HMO) Gold Meyer [id number] Gold Meyer 12/10/2021 1 [facility] ON OR AFTER 10/29/20 (MEDICAID REPLACEMENT - HMO) Gold Meyer [id number] Gold Meyer 05/03/2022 1 [facility] ON OR AFTER 10/29/20 (MEDICAID REPLACEMENT - HMO) Gold Meyer [id number] Gold Meyer 02/27/2023 1 [facility] ON OR AFTER 10/29/20 (MEDICAID REPLACEMENT - HMO) Gold Meyer [id number] Gold Meyer 01/09/2024 1 [facility] ON OR AFTER 10/29/20 (MEDICAID REPLACEMENT - HMO) Gold Meyer [id number] Gold Villasenor Betsy Notes Date Note Type Note Provider Name and Address Organization Details Recorded Time 09/21/2021 text/html Patient presents for my nose is running like a faucet Patient states allergy medication and nasal spray is not working. would like something else. sx worsened since moving here from [place]. denies fever, chills, weight loss, fatigue, facial pain. on chart review patient has low WBC and elevated MCV, agrees to check b12. states he does not drink and does eat animal protein. denies fatigue but does c/o b/l tingling/numbness in hands. States this is probably from neck surgery. Patient continues smoking. CHUCKY DE LEON Attn: [address] [place], [address], [facility] 09/24/2021 09:27:07 12/10/2021 text/html Gold presents today for pain and I think I have a kidney stone Patient has pelvic and radiation to lower back. He felt he had a fever yesterday but did not take his temperature. He was not hydrating well but started drinking more water yesterday. Today did not go to work due to pain. Has been constipated since Monday without any BM. denies any other symptoms. CHUCKY DE LEON Attn: [address] [place], [address], [facility] 12/10/2021 11:59:25 02/27/2023 text/html 2 weeks congestion and clear mucus after URI with fevers 100.2 for three days. symptoms sinuses are tight. coughing at night time is worse. no recent fevers. no sob or chest pain still smoking and cut back 4-5 from pack per day CHUCKY DE LEON Attn: [address] [place], [address], [place] [facility] 02/27/2023 12:27:01 01/09/2024 text/html Gold presents today for wellness LDCT SCAN: needed repeat in 09/2023 due to multiple nodules. will give order today. wants patches as he is down to <1/4 ppd. smoking since age 18 about 1ppd sinuses: he feels like his allergies are starting to get worse. He is using claritin and otc flonase. wants to see ENT. denies fever/chills. low white blood count: does not remember if he saw heme. no notes in chart. repeat blood work. colon screen: wants cologuard. never got colonoscopy ED: wants refills CHUCKY DE LEON Attn: [address] [place], [address], [place] [facility] 01/09/2024 17:03:45
--- OUTSIDE RECORDS SUMMARY | 2024-09-30 00:34 | XMS_ITS | Clinical Summary ---
Author Organization [facility] Address [address] [place] [address] Care Team Providers Care Manual Lathe Operator Name Role Phone Mary Kate Cabrera Primary Care Provider + Allergies Active Allergy Reactions Criticality Noted Date Comments Penicillins Nausea & Vomiting Low 02/20/2024 Medications cetirizine 10 mg capsule Take by mouth Active Active Problems Problem Noted Date Diagnosed Date Positive colorectal cancer screening using Colog uard test 02/15/2024 Surgical History Surgery Date Site/Laterality Comments NECK SURGERY about 2013 Social History Tobacco Use Types Packs/Day Years [...] on file Legal Sex Male 7:57 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 Gender Identity Not on file Sexual Orientation Not on file Obstetrics History Plan of Treatment Health Maintenance Due Date Last Done Comments Colon Cancer Screening-Colonoscopy 1968 Depression Screening 1968 Hepatitis C Screening 1968 Prostate Cancer Screening-PSA 1968 DTaP/Tdap/Td Vaccine (1 - Tdap) 1979 Hepatitis B Screening 1986 Regular Well Visit/Exam 18-64 1986 Pneumococcal vaccine <65 (1 of 2 - PCV) 1987 Zoster Vaccine (1 of 2) 2018 Covid-19 Vaccine (2 - season) 12/31/202301/2022 Influenza Vaccine (Season Ended) 2024 Lung Cancer Screening 03/05/2025 03/04/2024, 023 Medical Devices Implanted Type Area Rheumatology Specialist Device Identifier Shelf Expiration Date Model / Serial / Lot 2 [place] Discs In Neck Neck Procedures Procedure Name Priority Date/Time Associated Diagnosis Comments CT CHEST WO CONTRAST F/U LUNG SCREEN PROTOCOL Schedule Routine, Read Routine (OP Routine) 03/04/2024 3:01 PM AGRICULTURAL SYSTEMS SPECIALIST Other nonspecific abnormal finding of lung field from Last 3 Months or Most Recently Relevant to Health Maintenance Results * CT Chest WO Contrast F/U Lung Screen Protocol (03/04/2024 3:01 PM AGRICULTURAL SYSTEMS SPECIALIST) Anatomical Region Laterality Modality Chest N/A Computed Tomogra phy 03/07/2024 6:42 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 Narrative 03/07/2024 6:50 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 EXAM DESCRIPTION: CT CHEST WO CONTRAST F/U [...] Corin Givens M.D. TW: MIKAELA Report ID: [id number] Reading Location: [id number] Procedure Note Corin Givens MD - 03/07/2024 [...] Corin Givens M.D. TW: TW Report ID: [id number] Reading Location: [id number] Mary Kate LOCKE IMG CT PROCEDURES Final Result from Last 3 Months or Most Recently Relevant to Health Maintenance Insurance [facility] Care Teams Manual Lathe Operator Relationship Specialty Start Date End Date Mary Kate Cabrera PA PCP - General Physician Sales Team Member 03/29/23
[2024-09-30 10:10] VITALS: BP 128/89; PULSE 75; RESP 20; TEMP 36.4; O2SAT 99; BMI 18.8
[2024-09-30] MEDS: LACTATED RINGERS 1,000 ML 150 ML IV CONT (10:28)
--- NOTE | 2024-09-30 10:31 | P.PNAN_ITS ---
Anes - Initial Pre Proc Eval Procedure: Operation Date: 09/30/24 11:30 Proposed Procedures p Colonoscopy - Yogi Wellington MD Date/Time: 09/30/24 10:31 Surgeon: Yogi Wellington MD Pre Op Diagnosis: Other fecal abnormalities Patient Data Age: 54 Gender: M Height: 1.75 m Weight: 57.9 kg Last Vital Signs Temp 36.4 C 09/30/24 10:10 Pulse 75 09/30/24 10:10 Resp 20 09/30/24 10:10 BP 128/89 09/30/24 10:10 Pulse Ox 99 09/30/24 10:10 O2 Del Method Room Air 09/30/24 10:10 Allergies Allergy/AdvReac Type Severity Reaction Status Date / Time No Known Allergies Allergy Verified 09/30/24 10:19 Home Medications ?Medication ?Instructions ?Recorded ?Confirmed ?Type cetirizine 10 mg tablet 10 mg PO DAILY 09/24/24 09/30/24 History ondansetron 4 mg disintegrating 4 mg PO Q12H PRN nausea and 09/24/24 09/24/24 History tablet vomiting Patient hx anesthesia problems: none Family hx anesthesia problems: none Results Review: All pre-operative results and documents have been reviewed as part of the pre- operative evaluation. [facility] Past Medical History Medical History (Updated 09/30/24 @ 10:31 by David Fabian MD) Skin cancer Surgical History Surgical History (Updated 09/30/24 @ 10:32 by David Fabian MD) H/O cervical spine surgery Social History Social History Years smoked: 20 Smoking status: Current every day smoker Tobacco type: cigarettes Substance use type: does not use Living arrangements: with family Additional living arrangements comments: with so Anes - Eval Final PreProcedure Day of Procedure 09/30/24 10:31 Patient weight: normal Heart: regular rate and rhythm Lungs: clear to auscultation Airway: Mallampati scale class II and special considerations poor dentition Neurological: alert and oriented Last oral intake: >/= 8 hours ASA classification: II Emergent: no Anesthetic plan: proceed Anesthesia type and monitoring: general GIVS and standard monitoring Results Review: All pre-operative results and documents have been reviewed as part of the pre- operative evaluation. Informed Consent: The patient's anesthetic plan and its attendant risks and benefits were discussed with the patient/family/POA. Questions were solicited and answers provided to the satisfaction of the patient/family/POA.
--- NOTE | 2024-09-30 10:44 | PM.HPGS ---
History of Present Illness History of Present Illness Consent: Risks, benefits, and alternatives have been discussed and questions answered. Patient agrees to proceed with procedure. Chief complaint: Other fecal abnormalities Narrative: Gold Meyer is a 54 year old male here for first colonoscopy, had + cologuard Review of Systems Review of Systems: All systems reviewed & are unremarkable except as noted in HPI and below PMFSH Past Medical History Medical History (Updated 09/30/24 @ 10:45 by Yogi Wellington MD) Positive colorectal cancer screening using Cologuard test Skin cancer Surgical History Surgical History (Updated 09/30/24 @ 10:32 by David Fabian MD) H/O cervical spine surgery Social History Social History Years smoked: 20 Smoking status: Current every day smoker Tobacco type: cigarettes Substance use type: does not use Living arrangements: with family Additional living arrangements comments: with so Meds Home Medications and Allergies Home Medications ?Medication ?Instructions ?Recorded ?Confirmed ?Type cetirizine 10 mg tablet 10 mg PO DAILY 09/24/24 09/30/24 History ondansetron 4 mg disintegrating 4 mg PO Q12H PRN nausea and 09/24/24 09/24/24 History tablet vomiting Allergies Allergy/AdvReac Type Severity Reaction Status Date / Time No Known Allergies Allergy Verified 09/30/24 10:19 Vital Signs Vital Signs - 24 hr 09/30/24 10:10 Temperature 97.6 F Pulse Rate 75 Respiratory Rate 20 Blood Pressure 128/89 Pulse Oximetry 99 Oxygen Delivery Room Air Exam Const: General: comfortable and no acute distress HENMT: Face/Nose/Sinus: Normal nares present Eyes: General: appearance normal, both eyes and all related structures Neck: Neck: no JVD Resp: Auscultation: clear to auscultation bilaterally Cardio: Rate: regular rate Rhythm: regular rhythm GI: Inspection: non-distended GI Palp: Yes Soft to palpation Skin: General skin exam: normal color Extrem: General: normal to inspection Psych: Mental Status: mental status grossly normal Assessment and Plan Assessment and plan (1) Positive colorectal cancer screening using Cologuard test: Code(s): R19.5 - Other fecal abnormalities Status: Acute Assessment and Plan: colonoscopy
--- NOTE | 2024-09-30 11:25 | S_PTH ---
PATIENT: Gold Meyer LOC: [facility]#:[id number] AGE/SX: 54/M ROOM: RE09/30/[address]: Yogi Wellington MD : 1970 BED: DIS: 09/30/2024 SPEC #: [id number] RECD: 09/30/24 13:14 STATUS: DO RERekha #: [id number] LOREE: 09/30/24 11:[address]: Yogi Wellington DEPT: [facility] Surgical RECD BY: Odilia Dover ENTERED: 09/30/24 13:14 SP TYPE: Surgical OTHR DR: UNKNOWN,DOCTOR Tissues: A - Colon Polypectomy B - Colon Polypectomy Procedures: Hematoxylin and Eosin Stain Gross and Microscopic Level 4
[2024-09-30 11:26] VITALS: BP 94/74; PULSE 73; RESP 17; O2SAT 100
[2024-09-30 11:36] VITALS: BP 106/82; PULSE 72; RESP 20; O2SAT 100
[2024-09-30 11:46] VITALS: BP 112/86; PULSE 77; RESP 22; O2SAT 100
== END 2024-09-30 11:53 | disposition home or self-care (01) ==
PROVIDERS: Referring Provider Physician Assistant; Visit Provider Internal Medicine Gastroenterology
PROC: 0DJD8ZZ Inspection of Lower Intestinal Tract, Via Natural or Artificial Opening Endoscopic (ICD-10-PCS; CPT 45378; principal; 2024-09-30 11:30)
DX: R19.5 Other fecal abnormalities (principal); D12.2 Benign neoplasm of ascending colon; D12.5 Benign neoplasm of sigmoid colon; K57.30 Diverticulosis of large intestine without perforation or abscess without bleeding; K64.8 Other hemorrhoids; F17.210 Nicotine dependence, cigarettes, uncomplicated
CPT/HCPCS: 45385; 88305; J2704; J7120